=== PATIENT | female | born 2000 | race Caucasian/White ===

== ENCOUNTER 2022-10-31 15:30 | Emergency (ER) | payer MEDICAID ==
[~2022-10-31] VITALS: Ht 157.5 cm; Wt 61.2 kg
[2022-10-31 16:01] VITALS: BP 114/72
--- NOTE | 2022-10-31 16:04 | NUR ---
AMB. TO BED WITH NO DISTRESS
[2022-10-31 17:59] VITALS: BP 114/72
--- NOTE | 2022-10-31 18:02 | NUR ---
Patient discharged with v/s stable. Written and verbal after care instructions given and explained. Patient verbalized understanding. Ambulatory with steady gait. All questions addressed prior to discharge. Advised to follow up with PMD.
== END 2022-10-31 17:59 | disposition home or self-care (01) ==
LOC: MED 15:30
DX: S93.492A Sprain of other ligament of left ankle, initial encounter (principal); W01.0XXA Fall on same level from slipping, tripping and stumbling without subsequent striking against object, initial encounter; Y93.89 Activity, other specified; Y92.89 Other specified places as the place of occurrence of the external cause; Y99.8 Other external cause status
CPT/HCPCS: 73610; 73630; 99284; Q0092